=== PATIENT | male | born 1990 | race Caucasian/White ===

== ENCOUNTER 2021-02-11 09:59 | Emergency (ER) | payer OTHER ==
[~2021-02-11] VITALS: Ht 175.3 cm; Wt 77.1 kg
[~2021-02-11 09:59] MED LIST: IBUPROFEN600 MG PO; NORFLEX 100 MG100 MG PO; PREDNISONE 50 M50 MG PO
[2021-02-11] MEDS ORDERED: ZOFRAN4 MG PO (15:13)
== END 2021-02-11 15:15 | disposition home or self-care (01) ==
LOC: ER1 09:59
DX: U07.1 COVID-19 (principal); Z23 Encounter for immunization; Z88.2 Allergy status to sulfonamides; J45.909 Unspecified asthma, uncomplicated
CPT/HCPCS: 99284; M0243; U0002